=== PATIENT | female | born 1985 | race Caucasian/White ===

== ENCOUNTER → 2021-01-23 08:46 | Outpatient (CLI) | payer OTHER, SELFPAY ==
[2021-01-23 10:29] LABS: Alanine Aminotransferase 14 IU/L (<35); Albumin 3.5 g/dL (3.5-5.0); Alkaline Phosphatase 99 U/L (38-126); Aspartate Aminotransferase 22 IU/L (14-36); Bilirubin Total 0.3 mg/dL (0.2-1.3); Blood Urea Nitrogen 10 mg/dL (7-17); Calcium 9.1 mg/dL (8.4-10.2); Carbon Dioxide 25 mmol/L (22-32); Chloride 107 mmol/L (98-107); Estimated Glomerular Filt Rate > 60.0 mL/min (>60); Globulin 3.6 g/dL (1.7-4.1); Glucose 82 mg/dL (70-100); HEMOLYSIS < 15 (0-50); Sodium 136 mmol/L (137-145); Total Protein 7.1 g/dL (6.3-8.2)
[2021-01-23 10:59] LABS: TSH w/ Reflex to FT4 2.11 uIU/mL (0.47-4.68)
[2021-01-24 12:54] LABS: Bile Acids 5.6 umol/L (0.0-10.0)
== END ==
PROVIDERS: PCP Family Medicine; Referring Provider Obstetrics & Gynecology; Visit Provider Obstetrics & Gynecology
DX: O99.719 Diseases of the skin and subcutaneous tissue complicating pregnancy, unspecified trimester (principal); L29.9 Pruritus, unspecified; O99.280 Endocrine, nutritional and metabolic diseases complicating pregnancy, unspecified trimester; E03.9 Hypothyroidism, unspecified
CPT/HCPCS: 36415; 80053; 82239; 84443

== ENCOUNTER 2021-01-23 08:57 | Outpatient (CLI) | payer OTHER, SELFPAY | END 2021-01-23 09:45 | disposition home or self-care (01) | LOC: OB 01-26 09:46 | PROVIDERS: PCP Family Medicine; Referring Provider Obstetrics & Gynecology; Visit Provider Obstetrics & Gynecology | DX: O36.5930 Maternal care for other known or suspected poor fetal growth, third trimester, not applicable or unspecified (principal); O35.8XX0 Maternal care for other (suspected) fetal abnormality and damage, not applicable or unspecified; O99.713 Diseases of the skin and subcutaneous tissue complicating pregnancy, third trimester; L29.9 Pruritus, unspecified; O99.283 Endocrine, nutritional and metabolic diseases complicating pregnancy, third trimester; E03.9 Hypothyroidism, unspecified; Z3A.30 30 weeks gestation of pregnancy | CPT/HCPCS: 36415; 59025; 80053; 82239; 84443; G0378; G0379 ==

== ENCOUNTER 2021-01-30 08:41 | Outpatient (CLI) | payer OTHER, SELFPAY | END 2021-01-30 10:01 | disposition home or self-care (01) | LOC: LABOR 08:57 → OB 02-02 07:34 | PROVIDERS: PCP Family Medicine; Referring Provider Specialist; Visit Provider Specialist | DX: O36.5930 Maternal care for other known or suspected poor fetal growth, third trimester, not applicable or unspecified (principal); O35.8XX0 Maternal care for other (suspected) fetal abnormality and damage, not applicable or unspecified; Z3A.31 31 weeks gestation of pregnancy | CPT/HCPCS: 59025; G0378; G0379 ==

== ENCOUNTER 2021-02-06 08:59 | Outpatient (CLI) | payer OTHER, SELFPAY ==
--- NOTE | 2021-02-06 13:19 | PM.OBTRLD ---
Visit Information Visit Information Date of evaluation: 02/06/21 Primary OB Provider: Rafa Angeles On-call OB Provider: Janel Abel Reason for Evaluation: Yes non-stress test Comments/Additional reasons for admission: 35-year-old at 32 weeks and 2 days for NST for IUGR and cardiac anomalies. She sees Dr. Angeles as well as maternal medicine through the [facility]. She was seen already in clinic today by Dr. Angeles. Vital Signs Vital Signs: Temperature 36.3? blood pressure 96/55 heart rate 94 PFSH Medical History (Updated 02/06/21 @ 13:23 by Janel Abel, DO) Abnormal Pap smear of cervix (~2011) Anxiety (~2009) Anxiety and depression Campylobacter intestinal infection (~07/2020) Depression (~2009) Hypothyroid (~2006) Infertility Kidney stones (~04/2018) with history of infertility in third trimester Surgical History (Updated 01/22/21 @ 19:43 by Vanna Russell) Anesthesia H/O bariatric surgery (~04/03/18) H/O colposcopy with cervical biopsy (~2011) History of esophagogastroduodenoscopy (EGD) (~01/2018) Hx laparoscopic cholecystectomy (~02/2019) [place] teeth extracted Family History (Updated 01/19/21 @ 10:40 by Annette Armenta RN) Father Pulmonary embolism Alcoholic Mitral valve disorder Adopted Mother Diabetes mellitus Kidney disease Breast cancer Cancer Fall Sepsis Grandfather No problems noted. Grandmother No problems noted. 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: Agn[employer] special arnaldo needs: No Smoking Status: Never smoker second hand exposure: No alcohol intake: former (pre- : social 2x/month) substance use type: does not use Evaluation Evaluation Baseline heart rate: 140 Variability: Moderate (11-25) monitor accelerations: Present Monitor Decelerations: Absent Uterine Contraction Intensity: Mild Category of Tracing: Reactive Diagnosis, Plan/Disposition Final Diagnosis (1) 32 weeks gestation of : Status: Acute (2) Intrauterine growth restriction (IUGR) affecting care of mother, third trimester, single gestation: Status: Acute Plan/Disposition Plan: 35-year-old at 32 weeks and 2 days gestation with known IUGR and cardiac anomalies followed by maternal medicine. NST reactive today. Mild contractions noted on the monitor however patient was not feeling them. She was appropriate for discharge home and will follow-up with Dr. Angeles and maternal medicine as scheduled. OB Disposition: home
== END 2021-02-06 10:00 | disposition home or self-care (01) ==
LOC: LABOR 09:34 → OB 02-09 13:02
PROVIDERS: PCP Family Medicine; Referring Provider Obstetrics & Gynecology; Visit Provider Obstetrics & Gynecology
DX: O36.5930 Maternal care for other known or suspected poor fetal growth, third trimester, not applicable or unspecified (principal); O35.9XX0 Maternal care for (suspected) fetal abnormality and damage, unspecified, not applicable or unspecified; Z3A.32 32 weeks gestation of pregnancy
CPT/HCPCS: 59025; G0378; G0379

== ENCOUNTER 2021-02-13 08:24 | Outpatient (CLI) | payer OTHER, SELFPAY ==
--- NOTE | 2021-02-13 09:07 | PM.OBTRLD ---
Visit Information Visit Information Date of evaluation: 02/13/21 Primary OB Provider: Rafa Angeles Reason for Evaluation: Yes non-stress test Comments/Additional reasons for admission: IUGR co-managed with [facility] Medical History (Updated 02/06/21 @ 13:23 by Janel Abel DO) Abnormal Pap smear of cervix (~2011) Anxiety (~2009) Anxiety and depression Campylobacter intestinal infection (~07/2020) Depression (~2009) Hypothyroid (~2006) Infertility Kidney stones (~04/2018) with history of infertility in third trimester Surgical History (Updated 01/22/21 @ 19:43 by Vanna Russell) Anesthesia H/O bariatric surgery (~04/03/18) H/O colposcopy with cervical biopsy (~2011) History of esophagogastroduodenoscopy (EGD) (~01/2018) Hx laparoscopic cholecystectomy (~02/2019) [place] teeth extracted Family History (Updated 01/19/21 @ 10:40 by Annette Armenta RN) Father Pulmonary embolism Alcoholic Mitral valve disorder Adopted Mother Diabetes mellitus Kidney disease Breast cancer Cancer Fall Sepsis Grandfather No problems noted. Grandmother No problems noted. 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: [employer] special arnaldo needs: No Smoking Status: Never smoker second hand exposure: No alcohol intake: former (pre- : social 2x/month) substance use type: does not use Evaluation Evaluation Baseline heart rate: 155 Variability: Moderate (11-25) monitor accelerations: Present Monitor Decelerations: Variable (One isolated variable with prompt return to baseline) Category of Tracing: Reactive Status: Category l Diagnosis, Plan/Disposition Final Diagnosis (1) Intrauterine growth restriction (IUGR) affecting care of mother, third trimester, single gestation: Status: Acute (2) : Status: Acute Plan/Disposition Plan: Continue twice weekly testing with delivery at 38 weeks or as indicated for indications OB Disposition: home
== END 2021-02-13 09:20 | disposition home or self-care (01) ==
LOC: LABOR 08:41 → OB 02-15 13:12
PROVIDERS: PCP Family Medicine; Referring Provider Obstetrics & Gynecology; Visit Provider Obstetrics & Gynecology
DX: O36.5930 Maternal care for other known or suspected poor fetal growth, third trimester, not applicable or unspecified (principal); Z3A.33 33 weeks gestation of pregnancy
CPT/HCPCS: 59025; G0378; G0379

== ENCOUNTER 2021-02-20 08:50 | Outpatient (CLI) | payer OTHER, SELFPAY ==
--- NOTE | 2021-02-20 09:55 | P.TNLD_ITS ---
Visit Information Visit Information Date of evaluation: 02/20/21 Primary OB Provider: Rafa Angeles On-call OB Provider: Janel Abel Reason for Evaluation: Yes other Comments/Additional reasons for admission: 35-year-old at 34 weeks and 2 days for NST for IUGR and cardiac anomalies.? She is co-[facility] Dr[facility]. Plan is for delivery at . Vital Signs Vital Signs: Temperature 36.7? blood pressure 97/63 heart rate 82 PFSH Medical History (Updated 02/20/21 @ 10:00 by Janel Abel, DO) Abnormal Pap smear of cervix (~2011) Anxiety (~2009) Anxiety and depression Campylobacter intestinal infection (~07/2020) Depression (~2009) Hypothyroid (~2006) Infertility Kidney stones (~04/2018) with history of infertility in third trimester Surgical History (Updated 01/22/21 @ 19:43 by Vanna Russell) Anesthesia H/O bariatric surgery (~04/03/18) H/O colposcopy with cervical biopsy (~2011) History of esophagogastroduodenoscopy (EGD) (~01/2018) Hx laparoscopic cholecystectomy (~02/2019) [place] teeth extracted Family History (Updated 01/19/21 @ 10:40 by Annette Armenta RN) Father Pulmonary embolism Alcoholic Mitral valve disorder Adopted Mother Diabetes mellitus Kidney disease Breast cancer Cancer Fall Sepsis Grandfather No problems noted. Grandmother No problems noted. 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 Continue twice weekly testing, follow up with Dr. Angeles and EDI as scheduled. OB Disposition: home
== END 2021-02-20 09:59 | disposition home or self-care (01) ==
LOC: OB 02-24 12:02
PROVIDERS: PCP Family Medicine; Referring Provider Obstetrics & Gynecology; Visit Provider Obstetrics & Gynecology
DX: O36.5930 Maternal care for other known or suspected poor fetal growth, third trimester, not applicable or unspecified (principal); O35.9XX0 Maternal care for (suspected) fetal abnormality and damage, unspecified, not applicable or unspecified; Z3A.34 34 weeks gestation of pregnancy
CPT/HCPCS: 59025; G0378; G0379

== ENCOUNTER → 2021-02-27 13:47 | Outpatient (CLI) | payer OTHER, SELFPAY ==
[2021-02-28 11:09] LABS: Strep Grp B PCR NEG for Grp B Strep
== END ==
PROVIDERS: PCP Family Medicine; Referring Provider Obstetrics & Gynecology; Visit Provider Obstetrics & Gynecology
DX: Z34.83 Encounter for supervision of other normal pregnancy, third trimester (principal); Z3A.35 35 weeks gestation of pregnancy
CPT/HCPCS: 87653

== ENCOUNTER 2021-02-27 13:50 | Outpatient (CLI) | payer OTHER, SELFPAY | END 2021-02-27 15:00 | disposition home or self-care (01) | LOC: LABOR 14:44 → OB 03-03 10:45 | PROVIDERS: PCP Family Medicine; Referring Provider Obstetrics & Gynecology; Visit Provider Obstetrics & Gynecology | DX: O35.9XX0 Maternal care for (suspected) fetal abnormality and damage, unspecified, not applicable or unspecified (principal); O36.5930 Maternal care for other known or suspected poor fetal growth, third trimester, not applicable or unspecified; Z3A.35 35 weeks gestation of pregnancy; Z34.83 Encounter for supervision of other normal pregnancy, third trimester | CPT/HCPCS: 59025; 87653; G0378; G0379 ==

== ENCOUNTER 2021-03-06 15:10 | Outpatient (CLI) | payer OTHER, SELFPAY | END 2021-03-06 16:00 | disposition home or self-care (01) | LOC: OB 03-10 06:59 | PROVIDERS: PCP Family Medicine; Referring Provider Obstetrics & Gynecology; Visit Provider Obstetrics & Gynecology | DX: O47.03 False labor before 37 completed weeks of gestation, third trimester (principal); Z3A.36 36 weeks gestation of pregnancy | CPT/HCPCS: 59025; G0378; G0379 ==

== ENCOUNTER → 2021-04-22 13:58 | Outpatient (CLI) | payer OTHER, SELFPAY ==
[2021-04-22 16:10] LABS: TSH w/ Reflex to FT4 0.04 uIU/mL (0.47-4.68)
[2021-04-22 16:38] LABS: Free T4, Direct Thyroxine 1.94 ng/dL (0.78-2.19)
== END ==
PROVIDERS: PCP Family Medicine; Referring Provider Obstetrics & Gynecology; Visit Provider Obstetrics & Gynecology
DX: E03.9 Hypothyroidism, unspecified (principal)
CPT/HCPCS: 36415; 84439; 84443